=== PATIENT | female | born 1940 | race Caucasian/White ===

== ENCOUNTER 2022-06-14 10:20 | Outpatient (CLI) | payer MEDICARE, OTHER, SELFPAY ==
[2022-06-14 16:54] LABS: Albumin* 4.4 g/dL (3.3-5.0); Chloride* 102 mmol/L (96-114)
[2022-06-14 16:55] LABS: Potassium* 4.4 mmol/L (3.6-5.1); Sodium* 139 mmol/L (135-149)
[2022-06-14 16:57] LABS: Alanine Aminotransferase* 18 U/L (4-35); Alkaline Phosphatase* 117 U/L (40-150); Aspartate Amino Transferase* 33 U/L (12-35); Bilirubin Total* 0.4 mg/dL (0.1-1.5); Blood Urea Nitrogen* 24 mg/dL (7-30); Carbon Dioxide* 25 mmol/L (20-32); Cholesterol* 153 mg/dL (90-199); Creatinine* 1.1 mg/dL (0.5-1.5); Estimated Glomerular Filt Rate 50 ml/min; Glucose* 129 mg/dL (60-115); Total Protein* 7.8 g/dL (6.0-8.3)
[2022-06-14 16:58] LABS: Calcium* 9.8 mg/dL (8.4-10.6); HDL Cholesterol* 66 mg/dL (>=50); LDL Cholesterol Calculated 60 mg/dL (<100); Triglycerides* 135 mg/dL (40-149)
== END 2022-06-14 10:21 | disposition home or self-care (01) ==
PROVIDERS: PCP Physician Assistant Medical; Visit Provider Physician Assistant Medical
DX: Z00.00 Encounter for general adult medical examination without abnormal findings (principal); D50.9 Iron deficiency anemia, unspecified; E78.5 Hyperlipidemia, unspecified; I10 Essential (primary) hypertension; M81.0 Age-related osteoporosis without current pathological fracture
CPT/HCPCS: 80053; 80061

== ENCOUNTER 2022-09-07 09:31 | Outpatient (CLI) | payer MEDICARE, OTHER, SELFPAY ==
--- NOTE | 2022-09-07 10:15 | CRLHL7_ITS ---
For Patients: As a result of the Cures Act, medical imaging exams and procedure reports are released immediately into your electronic medical record. You may view this report before your referring provider. If you have questions, please contact your health care provider. UNILATERAL LEFT SCREENING MAMMOGRAM WITH COMPUTER-AIDED DETECTION TECHNIQUE: CC and MLO views were obtained. These mammographic images have been obtained using full-field digital technique. These mammographic images were interpreted with the benefit of computer-aided detection. COMPARISON FILM: 08/30/21, 08/13/20, 08/28/19. FINDINGS: There are scattered areas of fibroglandular density IMPRESSION: There is no radiographic evidence for malignancy. ASSESSMENT: BI-RADS Category 2: Benign RECOMMENDATION: Routine screening mammogram in 1 year. A lay language report of this examination will be provided to the patient. JOHN PAUL MARTIN M.D. Diagnostic/Nuclear Medicine Radiologist [email or web address] SALVATORE:polly Transcribed: 2:17 p.mRoxann matias/Dictated by: John Paul Martin MD @ 09/07/2022 12:26:00 PM (Electronically Signed)
== END 2022-09-07 09:32 | disposition home or self-care (01) ==
PROVIDERS: PCP Physician Assistant Medical; Visit Provider Physician Assistant Medical
DX: Z12.31 Encounter for screening mammogram for malignant neoplasm of breast (principal)
CPT/HCPCS: 77063; 77067

== ENCOUNTER 2023-05-17 08:28 | Outpatient (CLI) | payer MEDICARE, OTHER, SELFPAY | END 2023-05-17 08:29 | disposition home or self-care (01) | LOC: NFLDREF 05-18 11:06 | PROVIDERS: PCP Physician Assistant Medical; Referring Provider Physician Assistant Medical; Visit Provider Physician Assistant Medical | DX: R30.0 Dysuria (principal) | CPT/HCPCS: 87086; 87186 ==

== ENCOUNTER 2023-05-29 13:28 | Outpatient (CLI) | payer MEDICARE, OTHER, SELFPAY | END 2023-05-29 13:29 | disposition home or self-care (01) | LOC: NFLDREF 05-30 17:51 | PROVIDERS: PCP Physician Assistant Medical; Referring Provider Physician Assistant Medical; Visit Provider Student in an Organized Health Care Education/Training Program | DX: R30.0 Dysuria (principal); N39.0 Urinary tract infection, site not specified | CPT/HCPCS: 87086; 87186 ==

== ENCOUNTER 2023-05-30 08:00 | Outpatient (CLI) | payer MEDICARE, OTHER, SELFPAY | END 2023-05-30 08:01 | disposition home or self-care (01) | LOC: NFLDREF 17:36 | PROVIDERS: PCP Physician Assistant Medical; Referring Provider Physician Assistant Medical; Visit Provider Physician Assistant Medical | DX: D50.9 Iron deficiency anemia, unspecified (principal); E78.5 Hyperlipidemia, unspecified; I10 Essential (primary) hypertension | CPT/HCPCS: 80053; 80061 ==

== ENCOUNTER 2024-03-27 15:05 | Outpatient (CLI) | payer MEDICARE, OTHER, SELFPAY | END 2024-03-27 15:06 | disposition home or self-care (01) | PROVIDERS: PCP Physician Assistant Medical; Referring Provider Physician Assistant Medical; Visit Provider Physician Assistant Medical | DX: E78.2 Mixed hyperlipidemia (principal); E55.9 Vitamin D deficiency, unspecified; M81.0 Age-related osteoporosis without current pathological fracture; E04.1 Nontoxic single thyroid nodule; D50.9 Iron deficiency anemia, unspecified; D50.8 Other iron deficiency anemias; N39.0 Urinary tract infection, site not specified | CPT/HCPCS: 80053; 80061; 82306; 84443 ==